=== PATIENT | female | born 1975 | race Caucasian/White ===

== ENCOUNTER 2019-10-05 09:34 | Emergency (ER) | payer MEDICAID ==
[~2019-10-05] VITALS: Ht 160 cm; Wt 89.9 kg
[2019-10-05 09:41] VITALS: BP 137/81
--- NOTE | 2019-10-05 09:45 | NUR ---
PT AMB TO BED 2 WITH STEADY GAIT
--- NOTE | 2019-10-05 09:51 | NUR ---
44 y/o F presents to ED c/o right sided abdominal pain radiating to back x4 days. A&O x4. Respirations even and unlabored. Pt states 8/10 pain at this time. Vital Signs Stable. HOB elevated, bedrails up x1, bed in lowest position. ERMD made aware of pt status. Allergies: NKA Med hx: none
--- NOTE | 2019-10-05 10:09 | NUR ---
DR PEDRO AT BEDSIDE
[2019-10-05] MEDS ORDERED: KETOROLAC 60 MG/2 ML VIAL IM ONE (10:15)
--- NOTE | 2019-10-05 10:26 | NUR ---
US AT BEDSIDE
--- NOTE | 2019-10-05 10:26 | NUR ---
[facility] IM ADMINISTERED FOR PTS PAIN
--- NOTE | 2019-10-05 10:27 | NUR ---
DR PEDRO STATES NO NEED FOR IV AT THIS TIME
[2019-10-05 10:40] LABS: BASOPHILS # (AUTO) 0.1 K/uL (0.00-0.22); BASOPHILS % (AUTO) 1.1 % (0.0-2.0); EOSINOPHILS # (AUTO) 0.2 K/uL (0-0.4); EOSINOPHILS % (AUTO) 3.2 % (0.0-4.0); HEMATOCRIT 38.9 % (36-48); LYMPHOCYTES # (AUTO) 1.6 K/uL (2.5-16.5); LYMPHOCYTES % (AUTO) 20.9 % (20.5-51.1); MEAN CORPUSCULAR HEMOGLOBIN 28 pg (27-31); MEAN CORPUSCULAR HGB CONC 33 g/dL (33-37); MEAN CORPUSCULAR VOLUME 82.3 fL (80-94); MONOCYTES # (AUTO) 0.7 K/uL (0.8-1.0); MONOCYTES % (AUTO) 8.8 % (1.7-9.3); NEUTROPHILS # (AUTO) 5.1 K/uL (1.8-7.7); PLATELET COUNT (AUTO) 290 K/uL (140-450); RED BLOOD CELL COUNT(AUTO) 4.73 MIL/uL (4.20-5.40); RED CELL DISTRIBUTION WIDTH 14.6 % (11.6-13.7); WHITE BLOOD COUNT (AUTO) 7.7 K/uL (4.8-10.8)
[2019-10-05 10:55] LABS: ALBUMIN 3.5 g/dL (3.4-5.0); ANION GAP 12.9 (8-16); CARBON DIOXIDE 26.3 mmol/L (21-32); CREATININE 0.5 mg/dL (0.6-1.3); POTASSIUM 4.2 mmol/L (3.5-5.1); TOTAL BILIRUBIN 0.4 mg/dL (0.0-1.0)
--- NOTE | 2019-10-05 11:30 | NUR ---
Pt sitting in bed awake and alert. at bedside. Will continue to monitor.
[2019-10-05 12:43] VITALS: BP 134/84
--- NOTE | 2019-10-05 12:43 | NUR ---
Patient discharged with v/s stable. Written and verbal after care instructions given and explained. Patient alert, oriented and verbalized understanding of instructions. Ambulatory with steady gait. All questions addressed prior to discharge. ID band removed. Patient advised to follow up with PMD. Rx of Denair 5mg, Motrin 800mg, and Prilosec 40mg was given. Patient educated on indication of medication including possible reaction and side effects. Opportunity to ask questions provided and answered.
== END 2019-10-05 12:43 | disposition home or self-care (01) ==
LOC: MED 09:34
DX: R10.11 Right upper quadrant pain (principal); Z98.890 Other specified postprocedural states
CPT/HCPCS: 36415; 76705; 80053; 81002; 81025; 83690; 85025; 96372; 99284; J1885; Q0092

== ENCOUNTER 2022-12-07 13:08 | Emergency (ER) | payer MEDICAID ==
[~2022-12-07] VITALS: Ht 154.9 cm; Wt 86.2 kg
[2022-12-07 13:25] VITALS: BP 140/86
[2022-12-07] MEDS ORDERED: FAMO-92 PO (15:04)
[2022-12-07] MEDS ORDERED: PRED20TA5 PO (15:04)
--- NOTE | 2022-12-07 15:26 | NUR ---
Patient discharged with v/s stable. Written and verbal after care instructions DERMITITIS given and explained. Patient verbalized understanding. Ambulatory with steady gait. All questions addressed prior to discharge. Advised to follow up with PMD.
== END 2022-12-07 15:24 | disposition home or self-care (01) ==
LOC: MED 13:08
DX: R21 Rash and other nonspecific skin eruption (principal); Z79.899 Other long term (current) drug therapy
CPT/HCPCS: 99281

== ENCOUNTER 2024-01-20 20:52 | Emergency (ER) | payer MEDICAID, OTHER ==
[~2024-01-20] VITALS: Ht 152.4 cm; Wt 90.7 kg
[~2024-01-20 20:52] MED LIST: FAMO-92 PO; PRED20TA5 PO
[2024-01-20 21:10] VITALS: BP 148/76; PULSE 70; RESP 16; TEMP 97.4; O2SAT 100
[2024-01-20] MEDS: diphenhydrAMINE 50 MG CAP PO ONE (23:40)
== END 2024-01-21 00:47 | disposition home or self-care (01) ==
LOC: MED 20:52
DX: L30.9 Dermatitis, unspecified (principal); E78.00 Pure hypercholesterolemia, unspecified; E78.5 Hyperlipidemia, unspecified; M19.90 Unspecified osteoarthritis, unspecified site; Z79.899 Other long term (current) drug therapy
CPT/HCPCS: 99282; Q0163